=== PATIENT | female | born 1970 | race Caucasian/White ===

== ENCOUNTER 2022-07-22 14:52 | Observation (INO) ==
[2022-07-22] MEDS ORDERED: Nitroglycerin 0.4 MG TAB.SUBL SL PRN (18:34)
[2022-07-22] MEDS ORDERED: Morphine Sulfate 2 MG/ML SYRINGE IVP PRN (18:34)
[2022-07-22] MEDS ORDERED: Ondansetron 4 MG/2 ML VIAL IVP PRN (18:34)
[2022-07-22] MEDS ORDERED: Acetaminophen 325 MG TABLET PO PRN (18:34)
[2022-07-22] MEDS ORDERED: Melatonin 3 MG TABLET PO PRN (18:34)
[2022-07-22] MEDS ORDERED: Naloxone 0.4 MG/ML INJ IVP PRN (18:34)
[2022-07-22] MEDS ORDERED: D5% in Water 1,000 ML IVC PRN (19:25)
[2022-07-22] MEDS ORDERED: Dextrose Gel 15 GM/37.5 ML TUBE PO PRN ×2 (19:25)
[2022-07-22] MEDS ORDERED: *HR* Dextrose 50 % in Water (Syg) 50 ML SYRINGE IVP PRN (19:25)
[2022-07-23 02:51] LABS: Basophils % 0.3 %; Eosinophils # 0.1 K/mcL (0.0-0.6); Eosinophils % 1.2 %; Hematocrit 34.7 % (35.3-44.9); Hemoglobin 11.2 g/dL (11.5-15.4); Immature Granulocytes % 0.3 % (0-4); Lymphocytes # 3.1 K/mcL (0.6-4.6); Mean Corpuscular HGB Conc 32.3 g/dL (31.6-35.5); Mean Corpuscular Hemoglobin 28.1 pg (28.0-33.3); Mean Platelet Volume 10.3 fL (9.4-12.4); Monocytes # 0.9 K/mcL (0.0-1.3); Monocytes % 8.2 %; Neutrophils # 7.1 K/mcL (1.6-8.9); Platelet Count 160 K/mcL (140-400); Red Blood Count 3.99 M/mcL (3.82-4.97); Red Cell Distribution Width 13.6 % (11.5-14.5); White Blood Count 11.3 K/mcL (4.3-11.1)
[2022-07-23 02:58] LABS: INR 1.1
[2022-07-23 03:00] LABS: Estimated Average Glucose 126 mg/dl
[2022-07-23 03:12] LABS: Alanine Aminotransferase 15 Units/L (7-52); Albumin 3.9 g/dL (3.5-5.7); Albumin/Globulin Ratio 1.5 (1.1-2.2); Alkaline Phosphatase 58 Units/L (34-104); Aspartate Amino Transferase 17 Units/L (13-39); BUN/Creatinine Ratio 22 (6-26); Bilirubin,Total 0.2 mg/dL (0.3-1.0); Blood Urea Nitrogen 17 mg/dL (6-20); Calcium 8.8 mg/dL (8.6-10.3); Carbon Dioxide 25 mEq/L (23-29); Chloride 106 mEq/L (98-107); Cholesterol 143 mg/dL (< 200); Globulin 2.6 g/dL (2.4-3.5); Glucose 122 mg/dL (70-105); HDL Cholesterol 47 mg/dL (40-59); LDL Cholesterol,Calculated 79 mg/dL (< 100); Magnesium 2.1 mg/dL (1.6-2.6); Osmolality,Calculated 287 (280-300); Potassium 3.7 mEq/L (3.5-5.1); Sodium 137 mEq/L (136-145); Total Protein 6.5 g/dL (6.4-8.9); Triglycerides 84 mg/dL (< 150)
[2022-07-23 03:32] LABS: Thyroid Stimulating Hormone 2.236 mcIU/mL (0.340-5.600)
[2022-07-23] MEDS: 0.9 % Sodium Chloride 1,000 ML IVC SCH ×2 (05:44→12:23)
[2022-07-23] MEDS ORDERED: Regadenoson 0.4 MG/5 ML SYRINGE IVP ONE (06:16)
[2022-07-23 08:37] LABS: Amphetamine Screen,Urine Negative ng/mL (Cutoff=1000); Barbiturate Screen,Urine Negative ng/mL (Cutoff=200); Benzodiazepines Screen,Urine Negative ng/mL (Cutoff=200); Cannabinoid Screen,Urine Negative ng/mL (Cutoff = 50); Cocaine Screen,Urine Negative ng/mL (Cutoff= 300); Opiate Screen,Urine Negative ng/mL (Cutoff=300); Phencyclidine Screen,Urine Negative ng/mL (Cutoff=25)
[2022-07-23] MEDS ORDERED: Aspirin 81 MG TAB.CHEW PO SCH (09:00)
[2022-07-23 09:38] VITALS: BP 130/83; PULSE 61; TEMP 98.3; O2SAT 95
== END 2022-07-23 17:06 | disposition home or self-care (01) ==
LOC: 3BNU → SUATTDRO 17:55
PROVIDERS: ADMIT Hospitalist; ATTEND Registered Nurse